=== PATIENT | male | born 1975 | race Caucasian/White ===

== ENCOUNTER 2021-10-05 23:57 | Emergency (ER) | payer BC ==
[2021-10-06 00:24] LABS: CHLORIDE,CL 104 mEq/L (98-106); SODIUM,NA 140 mEq/L (136-145)
[2021-10-06] MEDS ORDERED: Ketorolac 30 MG/ML SDV IVPUSH ONE (00:27)
[2021-10-06] MEDS ORDERED: Sodium Chloride 0.9% 1,000 ML IV SCH (00:30)
[2021-10-06] MEDS ORDERED: Ondansetron 8 MG in Sodium Chloride 0.9% 50 ML IV PRN (00:33)
--- NOTE | 2021-10-06 00:36 | EDM.PDOC ---
ED HPI GENERAL MEDICAL PROBLEM - General Chief Complaint: Back Pain or Injury Stated Complaint: "Left flank pain" Time Seen by Provider: 10/06/21 00:25 Source of Information: Reports: Patient, RN History Limitations: Reports: No Limitations - History of Present Illness INITIAL COMMENTS - FREE TEXT/NARRATIVE: States that about 6 pm tonight he started having pain to the left flank area. radiates around to the left groin area. has never had kidney stones but his father has. He has had nausea with it but has not vomited. Has never had pain like this in the past. No fever or chills. No diarrhea. Onset: Gradual Onset Date: 10/06/21 Onset Time: 18:00 Duration: Getting Worse Location: Reports: Abdomen Flank Pain Score (Numeric/FACES): 9 - Related Data Allergies Allergy/AdvReac Type Severity Reaction Status Date / Time No Known Allergies Allergy Verified 10/06/21 00:07 Home Meds: Home Meds Albuterol [Take Home: Albuterol 18 GM, 1 INH Pack] 2 puff INH ASDIRECTED 12/04/20 [History] Fluticasone/Salmeterol [Advair HFA 115-21 MCG] 1 puff INH BID 12/04/20 [History] Past Medical History Respiratory History: Reports: Asthma - Past Surgical History Other Musculoskeletal Surgeries/Procedures:: Neck fusion, March 2021 Social & Family History - Tobacco Use Tobacco Use Status *Q: Never Tobacco User Second Hand Smoke Exposure: No - Recreational Drug Use Recreational Drug Use: No ED ROS GENERAL - Review of Systems Review Of Systems: See Below Constitutional: Denies: Fever, Chills Respiratory: Reports: No Symptoms Cardiovascular: Reports: No Symptoms GI/Abdominal: Reports: Abdominal Pain : Reports: No Symptoms Skin: Reports: No Symptoms ED EXAM,LOWER BACK PAIN/INJURY - Physical Exam Exam: See Below Exam Limited By: No Limitations General Appearance: Alert, WD/WN, Moderate Distress Neck: Normal Inspection Respiratory/Chest: No Respiratory Distress, Lungs Clear, Normal Breath Sounds, No Accessory Muscle Use Cardiovascular: Regular Rate, Rhythm GI/Abdominal: Normal Bowel Sounds, Soft, Tender (to the left flank area with any palpation.) Back Exam: CVA Tenderness (L) Extremities: Normal Inspection, No Pedal Edema, Normal Capillary Refill Neurological: Alert, Normal Mood/Affect, Oriented x 3 Skin Exam: Warm, Dry Course - Vital Signs Last Recorded V/S: Last Vital Signs Temp 96.7 F L 10/06/21 00:20 Pulse 75 10/06/21 00:20 Resp 20 10/06/21 00:20 BP 181/110 H 10/06/21 00:20 Pulse Ox 98 10/06/21 00:20 - Orders/Labs/Meds Orders: Active Orders 24 hr Category Date Time Status Abdomen Pelvis wo Cont [CT] Stat Exams 10/06/21 00:29 Taken Ondansetron [Zofran] 8 mg Med 10/06/21 00:33 Active Sodium Chloride 0.9% [Normal Saline] 50 ml IV Q8H Sodium Chloride 0.9% [Normal Saline] 1,000 ml Med 10/06/21 00:30 Active IV ASDIRECTED Medication Orders Sodium Chloride (Normal Saline) 1,000 mls @ 500 mls/hr IV ASDIRECTED ANTHONY Last Admin: 10/06/21 00:41 Dose: 500 mls/hr Documented by: NEAL Ondansetron HCl 8 mg/ Sodium (Chloride) 54 mls @ 100 mls/hr IV Q8H PRN PRN Reason: Nausea Last Admin: 10/06/21 00:43 Dose: 100 mls/hr Documented by: NEAL Labs: Laboratory Tests 10/06/21 10/06/21 10/06/21 Range/Units 00:16 00:16 00:16 WBC 10.5 (4.0-11.0) 10^3/uL RBC 5.57 (4.50-6.00) x10^6/uL Hgb 16.2 (14.0-18.0) g/dL Hct 47.6 (42.0-52.0) % MCV 85.5 (83.0-97.0) fL MCH 29.1 (27.0-32.0) pg MCHC 34.0 (32.0-36.0) g/dL RDW Coeff of Paula 12.6 (11.0-15.0) % Plt Count 246 (150-400) 10^3/uL Immature Gran % (Auto) 0.3 (0.0-4.9) % Neut % (Auto) 67.6 (41-71) % Lymph % (Auto) 20.4 L (24-44) % [place] % (Auto) 6.4 (0-10) % Eos % (Auto) 4.9 (0-6) % Baso % (Auto) 0.4 (0-1) % Neut # (Auto) 7.11 (1.80-8.00) x10^3/uL Lymph # (Auto) 2.14 (0.60-5.00) 10^3/uL [place] # (Auto) 0.67 (0.00-1.50) 10^3/uL Eos # (Auto) 0.52 (0.00-1.50) 10^3/uL Baso # (Auto) 0.04 (0.00-0.50) 10^3/uL Immature Gran # (Auto) 0.03 (0.00-0.49) 10^3/uL Sodium 140 (136-145) mEq/L Potassium 3.7 (3.5-5.0) mEq/L Chloride 104 (98-106) mEq/L Carbon Dioxide 28 (21-32) mmol/L BUN 12 (7-18) mg/dL Creatinine 1.1 (0.7-1.3) mg/dL Est Cr Clr Drug Dosing TNP Estimated GFR (MDRD) > 60 (>=60) mL/min Glucose 127 H D (75-99) mg/dL Calcium 9.0 (8.4-10.1) mg/dL Urine Color Light yellow (YELLOW) Urine Appearance Slightly cloudy (CLEAR) Urine pH 7.5 (4.5-8.0) Ur Specific [place] 1.025 H (1.003-1.020) Urine Protein 30 H (NEGATIVE) mg/dL Urine Glucose (UA) Negative (NEGATIVE) mg/dL Urine Ketones Negative (NEGATIVE) mg/dL Urine Occult Blood Large H (NEGATIVE) Urine Nitrite Negative (NEGATIVE) Urine Bilirubin Negative (NEGATIVE) Urine Urobilinogen 0.2 (0.2-1.0) EU/dL Ur Leukocyte Esterase Negative (NEGATIVE) Urine RBC 75-100 H (0-5) /HPF Urine WBC Not seen (0-5) /HPF Urine Mucus Few H (NOT SEEN) /HPF Meds: Medications Generic Name Dose Route Start Last Admin Trade Name Freq PRN Reason Stop Dose Admin Sodium Chloride 1,000 mls @ 500 mls/hr 10/06/21 00:30 10/06/21 00:41 Normal Saline IV 500 mls/hr ASDIRECTED ANTHONY Administration Ondansetron HCl 8 mg/ Sodium 54 mls @ 100 mls/hr 10/06/21 00:33 10/06/21 00:43 Chloride IV 100 mls/hr Q8H PRN Administration Nausea Discontinued Medications Generic Name Dose Route Start Last Admin Trade Name Merissa PRN Reason Stop Dose Admin Hydromorphone HCl 1 mg 10/06/21 02:28 Hydromorphone 1 Mg/Ml Syringe IVPUSH 10/06/21 02:29 ONETIME ONE Ketorolac Tromethamine 30 mg 10/06/21 00:27 10/06/21 00:42 Ketorolac 30 Mg/Ml Sdv IVPUSH 10/06/21 00:28 30 mg ONETIME ONE Administration Tamsulosin HCl 0.4 mg 10/06/21 00:56 10/06/21 01:01 Tamsulosin 0.4 Mg Cap.Er PO 10/06/21 00:57 0.4 mg ONETIME ONE Administration - Re-Assessments/Exams Free Text/Narrative Re-Assessment/Exam: 10/06/21 02:37 CT report shows 11 mm stone on the left side. His pain had improved and is now coming back. Discussed that this may be too large for him to pass on it's own will refer to urology on friday. Departure - Departure Time of Disposition: 02:38 Disposition: Home, Self-Care 01 Condition: Good Clinical Impression: Kidney stone on left side - Discharge Information *PRESCRIPTION DRUG MONITORING PROGRAM REVIEWED*: Not Applicable *COPY OF PRESCRIPTION DRUG MONITORING REPORT IN PATIENT GAY: Not Applicable Instructions: Kidney Stones, [id number] Forms: ED Department Discharge Additional Instructions: Flomax 1 daily#7 use tylenol or ibuprofen for pain. If not working use Apison take 1-2 tabs every 4-6 hours as needed for pain. #30 given Sepsis Event Note (ED) - Focused Exam Vital Signs: Vital Signs Temp Pulse Resp BP Pulse Ox 10/06/21 00:20 96.7 F L 75 20 181/110 H 98 - Problem List & Annotations (1) Kidney stone on left side SNOMED Code(s): 43833544 Code(s): N20.0 - CALCULUS OF KIDNEY Status: Acute Priority: High Current Visit: Yes - Problem List Review Problem List Initiated/Reviewed/Updated: Yes - My Orders Last 24 Hours: My Active Orders 10/06/21 00:29 Abdomen Pelvis wo Cont [CT] Stat 10/06/21 00:30 Sodium Chloride 0.9% [Normal Saline] 1,000 ml IV ASDIRECTED 10/06/21 00:33 Ondansetron [Zofran] 8 mg Sodium Chloride 0.9% [Normal Saline] 50 ml IV Q8H - Assessment/Plan Last 24 Hours: My Active Orders 10/06/21 00:29 Abdomen Pelvis wo Cont [CT] Stat 10/06/21 00:30 Sodium Chloride 0.9% [Normal Saline] 1,000 ml IV ASDIRECTED 10/06/21 00:33 Ondansetron [Zofran] 8 mg Sodium Chloride 0.9% [Normal Saline] 50 ml IV Q8H
[2021-10-06] MEDS ORDERED: Tamsulosin 0.4 MG Cap.ER PO ONE (00:56)
[2021-10-06] MEDS ORDERED: HYDROmorphone 1 MG/ML Syringe IVPUSH ONE (02:28)
== END 2021-10-06 02:54 | disposition home or self-care (01) ==
LOC: CC.ED 23:57
DX: N20.0 Calculus of kidney (principal); J45.909 Unspecified asthma, uncomplicated; Z79.899 Other long term (current) drug therapy
CPT/HCPCS: 36415; 74176; 80048; 81001; 85025; 96365; 96375; 99284; A9270; J1170; J1885; J2405; J7030

== ENCOUNTER 2021-10-17 05:00 | Emergency (ER) | payer BC ==
[2021-10-17] MEDS ORDERED: fentaNYL 50 MCG/ML SDV IVPUSH ONE (05:08)
[2021-10-17] MEDS ORDERED: Ketorolac 30 MG/ML SDV IVPUSH ONE (05:08)
[2021-10-17] MEDS ORDERED: Ondansetron 4 MG/2 ML SDV IVPUSH STA (05:13)
[2021-10-17 05:43] LABS: CHLORIDE,CL 105 mEq/L (98-106); SODIUM,NA 141 mEq/L (136-145)
[2021-10-17] MEDS ORDERED: Sodium Chloride 0.9% 1,000 ML IV ONE (05:47)
--- NOTE | 2021-10-17 05:51 | EDM.PDOC ---
ED HPI GENERAL MEDICAL PROBLEM - General Chief Complaint: General Stated Complaint: kidney stone Time Seen by Provider: 10/17/21 05:31 Source of Information: Reports: Patient History Limitations: Reports: No Limitations - History of Present Illness INITIAL COMMENTS - FREE TEXT/NARRATIVE: Zia is a 46 yo male who presents to the ED with complaints of left flank pain. States around 2:00am he started to get pretty uncomfortable. Has a known 11mm stone that he was seen for on the 06 of October in the ED.He was given pain medication and fluids in the ED. States on discharge his pain was pretty much gone. Is scheduled to see urology on the [address] Pedraza at [facility] in [place]. Denies any fevers. Has been nauseated with it as well tonight. States he did take 2 tablets of Newberry around 2:00am. Has been trying to push fluids. Is on Flomax as well. Treatments HOME DEMONSTRATION AGENT: Reports: Other (see below) Other Treatments HOME DEMONSTRATION AGENT: norco Left Flank Pain Score (Numeric/FACES): 8 - Related Data Allergies Allergy/AdvReac Type Severity Reaction Status Date / Time No Known Allergies Allergy Verified 10/17/21 05:17 Home Meds: Home Meds Albuterol [Take Home: Albuterol 18 GM, 1 INH Pack] 2 puff INH ASDIRECTED 12/04/20 [History] Fluticasone/Salmeterol [Advair HFA 115-21 MCG] 1 puff INH BID 12/04/20 [History] Hydrocodone/Acetaminophen [HYDROcodone-Acetaminophen 5-325 MG] 1 - 2 tab PO Q4H PRN 10/17/21 [History] Ketorolac [Toradol] 10 mg PO Q8H PRN #15 tab 10/17/21 [Rx] Tamsulosin [Flomax] 0.4 mg PO DAILY 10/17/21 [History] Past Medical History Respiratory History: Reports: Asthma - Past Surgical History GI Surgical History: Reports: Hernia, Abdominal Male Surgical History: Reports: Vasectomy Other Musculoskeletal Surgeries/Procedures:: Neck fusion, March 2021 Social & Family History - Tobacco Use Tobacco Use Status *Q: Never Tobacco User - Caffeine Use Caffeine Use: Reports: Soda - Recreational Drug Use Recreational Drug Use: No ED ROS GENERAL - Review of Systems Review Of Systems: See Below Constitutional: Denies: Fever, Chills, Decreased Appetite HEENT: Reports: No Symptoms Respiratory: Reports: No Symptoms Cardiovascular: Reports: No Symptoms GI/Abdominal: Reports: Abdominal Pain, Nausea, Other (left flank pain). Denies: Bloody Stool, Constipation, Diarrhea, Vomiting : Reports: No Symptoms Musculoskeletal: Reports: No Symptoms Skin: Reports: No Symptoms Neurological: Reports: No Symptoms ED EXAM, GENERAL - Physical Exam Exam: See Below Exam Limited By: No Limitations General Appearance: Alert, Mild Distress Ears: Normal External Exam, Hearing Grossly Normal Nose: Normal Inspection, No Blood Throat/Mouth: Normal Voice, No Airway Compromise Head: Atraumatic, Normocephalic Neck: Normal Inspection Respiratory/Chest: No Respiratory Distress, Lungs Clear, Normal Breath Sounds, No Accessory Muscle Use Cardiovascular: Regular Rate, Rhythm, No Murmur GI/Abdominal: Normal Bowel Sounds, Soft, Non-Tender, No Organomegaly, No Distention, No Mass Back Exam: CVA Tenderness (L) Extremities: Normal Inspection, No Pedal Edema Neurological: Alert, Oriented Psychiatric: Normal Affect, Normal Mood Skin Exam: Warm, Dry, Intact, Normal Color, No Rash Course - Vital Signs Last Recorded V/S: Last Vital Signs Temp 97.4 F 10/17/21 11:02 Pulse 73 10/17/21 11:02 Resp 18 10/17/21 11:02 BP 134/78 10/17/21 11:02 Pulse Ox 98 10/17/21 11:02 - Orders/Labs/Meds Orders: Active Orders 24 hr Category Date Time Status Abdomen Pelvis wo Cont [CT] Stat Exams 10/17/21 09:07 Taken Labs: Laboratory Tests 10/17/21 10/17/21 10/17/21 Range/Units 05:08 05:30 05:30 WBC 10.9 (4.0-11.0) 10^3/uL RBC 5.37 (4.50-6.00) x10^6/uL Hgb 15.5 (14.0-18.0) g/dL Hct 45.1 (42.0-52.0) % MCV 84.0 (83.0-97.0) fL MCH 28.9 (27.0-32.0) pg MCHC 34.4 (32.0-36.0) g/dL RDW Coeff of Paula 12.4 (11.0-15.0) % Plt Count 237 (150-400) 10^3/uL Immature Gran % (Auto) 0.3 (0.0-4.9) % Neut % (Auto) 69.4 (41-71) % Lymph % (Auto) 19.8 L (24-44) % [place] % (Auto) 6.3 (0-10) % Eos % (Auto) 3.8 (0-6) % Baso % (Auto) 0.4 (0-1) % Neut # (Auto) 7.55 (1.80-8.00) x10^3/uL Lymph # (Auto) 2.15 (0.60-5.00) 10^3/uL [place] # (Auto) 0.69 (0.00-1.50) 10^3/uL Eos # (Auto) 0.41 (0.00-1.50) 10^3/uL Baso # (Auto) 0.04 (0.00-0.50) 10^3/uL Immature Gran # (Auto) 0.03 (0.00-0.49) 10^3/uL Sodium 141 (136-145) mEq/L Potassium 3.8 (3.5-5.0) mEq/L Chloride 105 (98-106) mEq/L Carbon Dioxide 25 (21-32) mmol/L BUN 12 (7-18) mg/dL Creatinine 1.0 (0.7-1.3) mg/dL Est Cr Clr Drug Dosing 94.27 mL/min Estimated GFR (MDRD) > 60 (>=60) mL/min Glucose 150 H (75-99) mg/dL Calcium 8.8 (8.4-10.1) mg/dL C-Reactive Protein < 0.2 L (0.2-0.8) mg/dL Urine Color Dark yellow (YELLOW) Urine Appearance Clear (CLEAR) Urine pH 5.5 (4.5-8.0) Ur Specific [place] >= 1.030 H (1.003-1.020) Urine Protein 100 H (NEGATIVE) mg/dL Urine Glucose (UA) Negative (NEGATIVE) mg/dL Urine Ketones Negative (NEGATIVE) mg/dL Urine Occult Blood Large H (NEGATIVE) Urine Nitrite Negative (NEGATIVE) Urine Bilirubin Negative (NEGATIVE) Urine Urobilinogen 0.2 (0.2-1.0) EU/dL Ur Leukocyte Esterase Negative (NEGATIVE) Urine RBC 75-100 H (0-5) /HPF Urine WBC 0-5 (0-5) /HPF Urine Mucus Moderate H (NOT SEEN) /HPF Meds: Medications Discontinued Medications Generic Name Dose Route Start Last Admin Trade Name Freq PRN Reason Stop Dose Admin Fentanyl 50 mcg 10/17/21 05:08 10/17/21 05:16 Fentanyl 50 Mcg/Ml Sdv IVPUSH 10/17/21 05:09 50 mcg ONETIME ONE Administration Hydromorphone HCl 1 mg 10/17/21 08:43 10/17/21 08:47 Hydromorphone 1 Mg/Ml Syringe IVPUSH 10/17/21 08:44 1 mg ONETIME ONE Administration Sodium Chloride 1,000 mls @ 999 mls/hr 10/17/21 05:47 10/17/21 05:52 Normal Saline IV 10/17/21 06:47 999 mls/hr .BOLUS ONE Administration Ketorolac Tromethamine 30 mg 10/17/21 05:08 10/17/21 05:16 Ketorolac 30 Mg/Ml Sdv IVPUSH 10/17/21 05:09 30 mg ONETIME ONE Administration Ondansetron HCl 4 mg 10/17/21 05:13 10/17/21 05:15 Ondansetron 4 Mg/2 Ml Sdv IVPUSH 10/17/21 05:14 4 mg STAT STA Administration Departure - Departure Time of Disposition: 11:20 Disposition: Home, Self-Care 01 Clinical Impression: Kidney stone on left side - Discharge Information Prescriptions: Ketorolac [Toradol] 10 mg PO Q8H PRN #15 tab PRN Reason: Pain Instructions: Kidney Stones, [id number] Referrals: Vineet Lester PA-C [Primary Care Provider] - Forms: ED Department Discharge Additional Instructions: 1) Continue taking Newberry as directed 2) Toradol 10mg - 1 tablet every 8 hours as needed for pain as well 3) Continue with Flomax daily 4) If any fevers, worsening pain or new onset of symptoms... Return for r eevaluation. Sepsis Event Note (ED) - Evaluation Sepsis Screening Result: No Definite Risk - Focused Exam Vital Signs: Vital Signs Temp Pulse Resp BP Pulse Ox 10/17/21 11:02 97.4 F 73 18 134/78 98 10/17/21 05:17 96.7 F L 70 18 142/89 H 95 - Problem List & Annotations (1) Kidney stone on left side SNOMED Code(s): 67815772 Code(s): N20.0 - CALCULUS OF KIDNEY Status: Acute Priority: High Current Visit: Yes - My Orders Last 24 Hours: My Active Orders 10/17/21 09:07 Abdomen Pelvis wo Cont [CT] Stat - Assessment/Plan Last 24 Hours: My Active Orders 10/17/21 09:07 Abdomen Pelvis wo Cont [CT] Stat Plan: Patient was given 50mcg of Fentanyl and 30mg of Toradol prior to my arrival. Upon arrival he was starting to feel better. Current pain is a 4 out of 10, upon arrival it was an 8 out of 10. Labs did show normal WBC. CRP normal as well. Urinalysis did show elevated spec grav with moderate amount of blood (75-100 RBC's). Will keep patient in extended ER at this time for IV fluids and to monitor pain. If pain continues to be well controlled will discharge home. Discussed repeating CT scan as well with patient today. Patient's pain did return and elected to repeat CT scan. Impression shows further migration of left renal calculus to the distal renal pelvis. Nonobstructing. Patient's pain is controlled at this time and will discharge home in satisfactory condition. Signs and symptoms to watch for discussed into detail.
[2021-10-17] MEDS ORDERED: HYDROmorphone 1 MG/ML Syringe IVPUSH ONE (08:43)
== END 2021-10-17 11:34 | disposition home or self-care (01) ==
LOC: SUPCPDRO 05:00 → CC.ED 05:00
DX: N20.0 Calculus of kidney (principal)
CPT/HCPCS: 36415; 74176; 80048; 81001; 85025; 86140; 96374; 96375; 99284; J1170; J1885; J2405; J3010; J7030

== ENCOUNTER 2022-04-07 08:17 | Observation (INO) | payer BC ==
[2022-04-07] MEDS ORDERED: Aspirin 81 MG Tab.EC PO ONE (08:35)
[2022-04-07] MEDS ORDERED: methylPREDNISolone Sodium Succinate 125 MG/2 ML SDV IVPUSH STA (08:37)
[2022-04-07 08:48] LABS: CHLORIDE,CL 107 mEq/L (98-106); SODIUM,NA 143 mEq/L (136-145)
[2022-04-07] MEDS ORDERED: Albuterol/Ipratropium 3.0-0.5 MG/3 ML Neb Soln ONE (08:51)
[2022-04-07] MEDS ORDERED: EPINEPHrine 1 MG/ML SDV IM ONE ×2 (08:51→08:57)
[2022-04-07] MEDS ORDERED: diphenhydrAMINE 50 MG/ML SDV IVPUSH PRN (08:51)
[2022-04-07] MEDS ORDERED: Take Home: predniSONE 20 MG, 2 Tab Pack PO ONE (09:12)
[2022-04-07] MEDS ORDERED: Iopamidol 755 Mg/ML 100 ML Bottle IVPUSH ONE (09:15)
[2022-04-07] MEDS ORDERED: Acetaminophen 325 MG Tab PO PRN (10:34)
[2022-04-07] MEDS ORDERED: Ondansetron 4 MG Tab.DIS PO PRN (10:34)
[2022-04-07] MEDS ORDERED: Sodium Chloride 0.9% 1,000 ML IV SCH (10:34)
[2022-04-07] MEDS ORDERED: Albuterol/Ipratropium 3.0-0.5 MG/3 ML Neb Soln NEB PRN (10:34)
[2022-04-07] MEDS: methylPREDNISolone Sodium Succinate 125 MG/2 ML SDV IVPUSH SCH ×2 (18:04→19:02)
[2022-04-07] MEDS: diphenhydrAMINE 50 MG/ML SDV IVPUSH SCH ×2 (18:05→19:02)
[2022-04-07] MEDS ORDERED: FLUTICASONE INH SCH (20:00)
[2022-04-07] MEDS ORDERED: SALMETEROL INH SCH (20:00)
[2022-04-08] MEDS: methylPREDNISolone Sodium Succinate 125 MG/2 ML SDV IVPUSH SCH (08:11)
[2022-04-08] MEDS: diphenhydrAMINE 50 MG/ML SDV IVPUSH SCH (08:14)
== END 2022-04-08 10:10 | disposition home or self-care (01) ==
LOC: CC.ED 08:17 → CC.MS 09:35 → CC.ED 09:40 → UNDOADMOB 09:45 → CC.MS 09:45
PROVIDERS: ADMIT Nurse Practitioner Family; ATTEND Nurse Practitioner Family
DX: R06.02 Shortness of breath (principal); T78.2XXA Anaphylactic shock, unspecified, initial encounter; Z79.899 Other long term (current) drug therapy; Z98.890 Other specified postprocedural states
CPT/HCPCS: 36415; 71275; 80053; 84484; 85025; 85379; 93005; 94640; 96372; 96374; 96375; 96376; 99285-25; A9270-GY; G0378; J0171; J1200; J2930; J7620-GY; Q9967